=== PATIENT | female | born 1975 | race Caucasian/White ===

== ENCOUNTER 2019-04-30 08:04 | Day surgery (SDC) | payer MEDICAID ==
[~2019-04-30] VITALS: Ht 162.6 cm; Wt 49.9 kg
[2019-04-30] MEDS ORDERED: GABA-531 PO (08:58)
[2019-04-30] MEDS ORDERED: TRAM50TA3 PO (08:58)
[2019-04-30] MEDS ORDERED: LORA-250 PO (08:58)
[2019-04-30] MEDS ORDERED: IBUP-2271 PO (08:58)
[2019-04-30] MEDS ORDERED: DIME1CAP PO (08:58)
[2019-04-30] MEDS ORDERED: ZOLP10TA2 PO (08:58)
[2019-04-30] MEDS ORDERED: ASPI-986 PO (08:58)
[2019-04-30] MEDS ORDERED: LACTATED RINGERS 1,000 ML IV SCH (09:15)
[2019-04-30] MEDS ORDERED: DIME240C2 PO (10:12)
[2019-04-30 10:28] LABS: HCG SCREEN NEGATIVE
[2019-04-30] MEDS ORDERED: MIDAZOLAM HCL 2 MG/2 ML VIAL ONE ×2 (10:41→10:52)
[2019-04-30] MEDS ORDERED: DIPHENHYDRAMINE 50MG/ML VIAL ONE (10:41)
[2019-04-30] MEDS ORDERED: FENTANYL CITRATE/PF 50MCG/ML 2ML VIAL ONE (10:41)
[2019-04-30] MEDS ORDERED: LIDOCAINE HCL 1% 20ML VIAL (Pyxis) INJ ONE (10:43)
[2019-04-30] MEDS ORDERED: PROPOFOL 200MG/20ML VIAL IV ONE (10:43)
== END 2019-04-30 13:00 | disposition home or self-care (01) ==
LOC: OR 08:04
PROVIDERS: ATTEND Internal Medicine Gastroenterology
DX: R10.30 Lower abdominal pain, unspecified (principal); R15.9 Full incontinence of feces; G35 Multiple sclerosis; R19.5 Other fecal abnormalities; F41.9 Anxiety disorder, unspecified; K59.00 Constipation, unspecified; R14.0 Abdominal distension (gaseous); Z72.89 Other problems related to lifestyle; Z79.899 Other long term (current) drug therapy
CPT/HCPCS: 45378; 84703; J1200; J2250; J2704; J3010; J3490; J7040